=== PATIENT | male | born 1985 | race African-American/Black ===

== ENCOUNTER 2019-01-23 22:07 | Emergency (ER) | payer OTHER ==
[~2019-01-23] VITALS: Ht 188 cm; Wt 79.4 kg
[~2019-01-23 22:07] MED LIST: CYCLOBENZAPRINE10 MG PO; IBUPROFEN 800800 MG PO; LIBRIUM PO; NOHOMEMEDICATIONS; ULTRAM 50MG TAB50 MG PO
[2019-01-23] MEDS ORDERED: PRINIVIL20 MG PO (22:13)
[2019-01-23 22:40] LABS: URINE BILIRUBIN NEGATIVE (Negative); URINE BLOOD TRACE (Negative); URINE CLARITY CLEAR; URINE COLOR YELLOW; URINE GLUCOSE-RANDOM* NEGATIVE (Negative); URINE KETONES 2+ (Negative); URINE LEUKOCYTES-REFLEX NEGATIVE (Negative); URINE NITRITE-REFLEX NEGATIVE (Negative); URINE PROTEIN (DIPSTICK) 2+ (Negative); URINE SPECIFIC GRAVITY >= 1.030 (1.005-1.035)
[2019-01-23 22:47] LABS: BACTERIA-REFLEX None Seen /HPF (None Seen); CASTS None Seen /LPF (None Seen); CRYSTALS None Seen /LPF (None Seen); MUCUS 4-6 Moderate strn/LPF (None Seen); SQUAMOUS 0-3 Few /LPF (0-3); URINE RBC 0-2 Rare /HPF (0-2); URINE WBC-REFLEX 0-5 Rare /HPF (0-5)
[2019-01-23 22:48] LABS: AMP/METHAMP Negative (Negative); BARBITURATES Negative (Negative); BENZODIAZEPINES Negative (Negative); COCAINE Negative (Negative); METHADONE Negative (Negative); OPIATES Negative (Negative); PCP Negative (Negative)
[2019-01-23 22:52] LABS: BASOPHILS 1.5 % (0.0-2.0); EOSINOPHILS 0.8 % (0.0-3.0); HEMATOCRIT 40.9 % (42.0-52.0); LYMPHOCYTES 31.7 % (24.0-44.0); MCH 34.2 pg (26.0-34.0); MCHC 34.3 g/dL (28.0-37.0); MCV 99.7 fL (80.0-100.0); MONOCYTES 7.1 % (1.0-8.0); PLATELET COUNT 125 thou/uL (150-400); POLYS 58.9 % (36.0-66.0); RDW 13.6 % (10.5-14.5); WBC 6.8 thou/uL (4.0-11.0)
[2019-01-23 23:03] LABS: ANION GAP 15 mmol/L (7-16); BUN 10 mg/dL (7-18); CALCIUM 8.7 mg/dL (8.5-10.1); CHLORIDE 98 mmol/L (98-107); CO2 29 mmol/L (21-32); CREATININE 0.7 mg/dL (0.7-1.3); GLUCOSE 83 mg/dL (74-106); POTASSIUM 3.3 mmol/L (3.5-5.1); SODIUM 142 mmol/L (136-145)
[2019-01-23 23:11] LABS: ALBUMIN 4.4 g/dL (3.4-5.0); MAGNESIUM 1.6 mg/dL (1.8-2.4); SALICYLATE < 2.8 mg/dL (2.8-20.0); SGOT 219 U/L (15-37); SGPT 145 U/L (30-65); TOTAL BILIRUBIN 0.5 mg/dL (<0.1-1.0); TOTAL PROTEIN 7.4 g/dL (6.4-8.2); TROPONIN-I <0.06 ng/mL (<0.06)
[2019-01-24 02:45] VITALS: BP 135/102
--- NOTE | 2019-01-24 08:03 | EKG ---
[place] [address] [facility] [place] [address] ELECTROCARDIOGRAM REPORT Name: AMEPAYAL Vera Room #: [facility]#: [id number] ������������������ Admission: 01/23/19 ������������������ Attend Phys: Discharge: 01/24/19 ������������������ Date of : 85 Report #: [id number] ����������������������������������������������������������������� [id number] THIS REPORT FOR: //name// [facility] ED Test Date: 2019-01-23 Test Time: 22:49:45 Pat Name: PAYAL MCCLOUD Department: Room: Gender: M Enrollment Services Dean: : 1985 Requested By: Stuart Hendrix Order Number: [id number] MD: Clifford Bolton Measurements Intervals [place] Rate: 100 P: 68 IA: 135 QRS: -41 QRSD: 104 T: 29 QT: 364 QTc: 470 Interpretive Statements Sinus tachycardia Left axis deviation ST elev, probable normal early repol pattern Compared to ECG 08/07/2015 18:52:43 no significant change was found Electronically Signed On 01-24-2019 8:03:24 CDT by Clifford Bolton [email or web address] ��������������������������������������������� <ELECTRONICALLY SIGNED> ���������������������������������������� By: Clifford Bolton MD, [facility] ��������������������������������������������� 01/24/19802 2249 Clifford Bolton MD, FAC /EPI
== END 2019-01-24 02:45 | disposition home or self-care (01) ==
LOC: ER 22:07
PROVIDERS: Emergency Medicine
DX: F10.129 Alcohol abuse with intoxication, unspecified (principal); E83.42 Hypomagnesemia; E87.6 Hypokalemia; R79.89 Other specified abnormal findings of blood chemistry; Y90.8 Blood alcohol level of 240 mg/100 ml or more; J45.909 Unspecified asthma, uncomplicated; F17.210 Nicotine dependence, cigarettes, uncomplicated

== ENCOUNTER 2020-04-08 10:46 | Inpatient (IN) | payer OTHER ==
[~2020-04-08] VITALS: Ht 188 cm; Wt 79.4 kg
[2020-04-08 10:46] VITALS: BP 149/84
[~2020-04-08 10:46] MED LIST changes: +PRINIVIL20 MG PO
[2020-04-08 11:08] LABS: BASOPHILS 0.6 % (0.0-2.0); HEMATOCRIT 46.8 % (42.0-52.0); HEMOGLOBIN 16.1 gm/dL (14.0-18.0); LYMPHOCYTES 8.5 % (24.0-44.0); MCH 35.5 pg (26.0-34.0); MCHC 34.3 g/dL (28.0-37.0); MCV 103.4 fL (80.0-100.0); MONOCYTES 7.7 % (1.0-8.0); PLATELET COUNT 144 thou/uL (150-400); POLYS 83.2 % (36.0-66.0); RBC 4.52 mil/uL (4.50-6.00); RDW 13.2 % (10.5-14.5); WBC 10.9 thou/uL (4.0-11.0)
[2020-04-08 11:31] LABS: CALCIUM 9.3 mg/dL (8.5-10.1); CREATININE 1.9 mg/dL (0.7-1.3); POTASSIUM 4.4 mmol/L (3.5-5.1)
[2020-04-08 11:35] LABS: ALBUMIN 5.3 g/dL (3.4-5.0); TOTAL BILIRUBIN 1.4 mg/dL (0.2-1.0); TOTAL PROTEIN 9.6 g/dL (6.4-8.2)
--- NOTE | 2020-04-08 13:14 | NUR ---
Pt reports he fell on a rock on and landed on the L side of his ribs. Reports continued pain since then
[2020-04-08 14:06] LABS: URINE BILIRUBIN 2+ (Negative); URINE BLOOD TRACE (Negative); URINE CLARITY CLEAR; URINE COLOR YELLOW; URINE GLUCOSE-RANDOM* NEGATIVE (Negative); URINE KETONES 3+ (Negative); URINE LEUKOCYTES-REFLEX NEGATIVE (Negative); URINE NITRITE-REFLEX NEGATIVE (Negative); URINE PROTEIN (DIPSTICK) 2+ (Negative); URINE SPECIFIC GRAVITY >= 1.030 (1.005-1.035); URINE UROBILINOGEN 0.2 E.U./dl (0.2-1.0)
[2020-04-08 14:15] LABS: CASTS None Seen /LPF (None Seen); CRYSTALS None Seen /LPF (None Seen); URINE RBC None Seen /HPF (0-2)
[2020-04-08 14:16] LABS: BACTERIA-REFLEX 1-9 Few /HPF (None Seen); SQUAMOUS 0-3 Few /LPF (0-3); URINE WBC-REFLEX None Seen /HPF (0-5)
--- NOTE | 2020-04-08 14:17 | NUR ---
Patient's mother updated on patient status
[2020-04-08 14:18] LABS: AMP/METHAMP Negative (Negative); BARBITURATES Negative (Negative); BENZODIAZEPINES Negative (Negative); COCAINE Negative (Negative); METHADONE Negative (Negative); OPIATES POSITIVE (Negative); PCP Negative (Negative)
[2020-04-08 14:25] VITALS: BP 141/85
[2020-04-08 14:53] VITALS: BP 131/89
[2020-04-08 17:25] VITALS: BP 150/93
--- NOTE | 2020-04-08 17:58 | NUR ---
PATIENT ADMITTED FROM ER WITH PANCREATITIS AND MULTIPLE RIB FRACTURES, ARRIVED ON THE UNIT AT 1530. PATIENT ALERT AND ORIENTED X 4, UP WITH SBA. PATIENT STATES HE FELL TODAY, FALL PRECAUTIONS IN PLACE, PATIENT INSTRUCTED TO CALL FOR ASSISTANCE. PATIENT C/O PAIN WITH LEFT FLANK AREA, SWOLLEN AND BRUISED, PATIENT GIVEN TRAMADOL 50MG 1 TABLET. PATIENT ON CLEAR LIQUID DIET, NPO AFTER MIDNIGHT FOR EGD. PATIENT HAS LEFT WRIST IV WITH D 5 1/2 NS AT 100CC/HR. ADMISSION COMPLETED, WILL GIVE REPORT TO JACQUELINE Hauser/DARRYL.
[2020-04-08 19:05] VITALS: BP 135/95
[2020-04-09 03:20] VITALS: BP 129/93
--- NOTE | 2020-04-09 04:40 | NUR ---
PATIENT IS PROGRESSING SLOWLY IN HIS CARE PLAN. VITAL SIGNS STABLE WITH PATIENT HAVING NO COMPLAINTS OF NAUSEA. PATIENT DID COMPLAIN OF PAIN FREQUENTLY IN LEFT FLANK AREA WHICH WAS TREATED APPROPRIATELY THROUGH MEDICATIONS AND NON PHARMACOLOGICAL INTERVENTIONS. FULLY ORIENTED, PATIENT IS ABLE TO CALL APPROPRIATELY AND PARTICIPATE IN CARE. NPO FROM MIDNIGHT ON IN ANTICIPATION OF TODAYS PROCEDURE. UP WITH ASSISTANCE INCIDENT FREE, PATIENT IS CONSIDERED A HIGH FALL RISK. CONTINUE PLAN OF CARE.
[2020-04-09 07:07] LABS: ALBUMIN 3.8 g/dL (3.4-5.0); CALCIUM 8.8 mg/dL (8.5-10.1); CREATININE 1.1 mg/dL (0.7-1.3); POTASSIUM 3.8 mmol/L (3.5-5.1); TOTAL BILIRUBIN 1.2 mg/dL (0.2-1.0); TOTAL PROTEIN 7.4 g/dL (6.4-8.2)
[2020-04-09 07:48] LABS: FOLIC ACID 14.9 ng/mL (8.6-58.9)
--- NOTE | 2020-04-09 14:49 | NUR ---
CM ATTEMPTED TO CONTACT PT IN HIS ROOM BUT NO ANSWER. PT IS PATIENT PAY SO CM FAXED REFERRAL TO [facility] AND WILL CONTINUE TO ATTEMPT TO REACH PT. PT HAD EGD TODAY. CM WILL CONTINUE TO FOLLOW TO ASSIST NEEDED.
[2020-04-09 16:04] VITALS: BP 137/95
--- NOTE | 2020-04-09 17:34 | NUR ---
PT A&OX4. AMBULATES WITH STANDBY ASSIST. IV INTACT IN R FA INFUSING FLUIDS W/O COMPS. EGD COMPLETE. PT TOLERATING FULL LIQUID DIET. CALL LIGHT W/I REACH. WILL CONT POC.
[2020-04-09 19:25] VITALS: BP 122/87
--- NOTE | 2020-04-10 02:59 | NUR ---
ASSUMED CARE OF PT AT APPROXIMATELY 1900. PT IS ALERT AND ORIENTED X4. COMPLAINS OF LEFT FLANK PAIN. PRN MEDICATION GIVEN DIRECTED. COMPLAINS OF DIFFICULTY SWALLOWING WITH A CONSTANT IRRITATION IN HIS THROAT. FOOD SERVICE UTILITY WORKER CONTACTED AND GIVEN ORDERS FOR A ONE TIME GI COCTAIL. PT STATED IT RELIEVED SOME OF THE DISCOMFORT BUT NOT FULLY. AT THIS TIME, PT IS RESTING IN BED WATCHING TV. CALL LIGHT WITHIN REACH. WILL CONTINUE TO MONITOR.
[2020-04-10 04:00] VITALS: BP 115/66
[2020-04-10 06:24] LABS: HEMATOCRIT 38.9 % (42.0-52.0); MCH 35.2 pg (26.0-34.0); MCHC 34.5 g/dL (28.0-37.0); MCV 102.2 fL (80.0-100.0); RBC 3.8 mil/uL (4.50-6.00); RDW 12.5 % (10.5-14.5); WBC 7.8 thou/uL (4.0-11.0)
[2020-04-10 06:26] LABS: HEMOGLOBIN 13.4 gm/dL (14.0-18.0)
[2020-04-10 06:39] LABS: CALCIUM 8.6 mg/dL (8.5-10.1); CREATININE 0.7 mg/dL (0.7-1.3); MAGNESIUM 1.7 mg/dL (1.8-2.4); POTASSIUM 3.1 mmol/L (3.5-5.1)
[2020-04-10 07:13] LABS: HEPATITIS B SURFACE AG Negative (Negative); HEPATITIS C VIRUS AB 0.3 (0.0-0.9)
[2020-04-10 07:17] VITALS: BP 128/86
--- NOTE | 2020-04-10 08:56 | NUR ---
ASSESSMENT: CM REVIEWED CHART AND SPOKE WITH PATIENT. PT IS ALERT AND ORIENTED X4. PT HAD EGD WITH BIOPSY YESTERDAY. PT REPORTS HE LIVES AT HOME WITH FAMILY. PT STATES HE IS FULLY INDEPENDENT WITH ADLS AND AMBULATION. PT IS LISTED PATIENT PAY. PT CONFIRMS HE HAS NO INSURANCE AND IS NOT CURRENTLY WORKING. PT DOES NOT HAVE A PCP. CM PROVIDED PATIENT WITH A [employer] PACKET AND INFORMATION FOR [employer]. REFERRAL WAS ALSO SENT TO [facility]. PT REPORTS HE SHOULD HAVE NO NEEDS AT DISCHARGE.
--- NOTE | 2020-04-10 10:44 | P ---
[facility] [place] [address] PROCEDURE REPORT Name: PAYAL MCCLOUD Jody Room #: 433-I ADM IN .R.#: [id number] Admission: 04/08/20 Attend Phys: Magdaleno Franz MD Discharge: Date of : 85 Report #: [id number] THIS REPORT FOR: cc: [facility] - No family physician/PCP FAM - No family physician/PCP Amando Whitaker MD ~ CC: [facility] physician/PCP Magdaleno Franz BRIEF HISTORY: The patient is a 34-year-old male, who has evidence of either pancreatitis or pancreatic injury as well as abdominal pain, nausea, vomiting and dysphagia for solid foods. PREOPERATIVE DIAGNOSES: Abdominal pain and dysphagia. POSTOPERATIVE DIAGNOSES: 1. Cemuldhm-ly-nkbyvo distal esophagitis. 2. Gastritis. 3. Dysphagia. MEDICATIONS: Deep sedation with propofol per anesthesia. SPECIMEN: Biopsies of gastritis. ESTIMATED BLOOD LOSS: 3 mL. PROCEDURE: EGD with biopsy, Be dilation. FINDINGS: Prior to propofol sedation, procedure of upper endoscopy discussed with the patient as well potential risks and its complications. He indicates he understands and desires that we proceed. DESCRIPTION OF PROCEDURE: With the patient in left lateral decubitus position, the Olympus video endoscope was inserted in the cervical esophagus under direct vision without difficulty. Examination of this organ through its entire style length revealed normal esophageal mucosa in the proximal esophagus. Distally, there was a moderate erosive esophagitis. It was a diffuse esophagitis circumferentially involving the mucosa. I suspect this is result of vomiting rather than related to peptic reflux esophagitis. He has had dysphagia. I did not see definite stricture or ring. There was some mucosal edema and there may be some slight luminal narrowing, which was circumferential diffuse. The scope passed easily. A hiatus hernia was not seen. The scope was advanced in the stomach, was examined on end view as well as retroflexed views. There was erythema in the antrum in a linear configuration. There were a few erosions in the antrum, but no ulcers were seen. Upon examination of the proximal stomach including end views as well as retroflexed views revealed patchy changes in the fundus of the stomach with patchy erythema, which is likely result of trauma [facility] [address] [place] [address] PROCEDURE REPORT Name: PAYAL MCCLOUD Room #: 433-I ADM IN .R.#: [id number] Admission: 04/08/20 Attend Phys: Magdaleno Franz MD Discharge: Date of : 85 Report #: [id number] from vomiting. No ulcers were seen. No mass or lesions were seen. Pylorus was unremarkable. Duodenal bulb was unremarkable. Postoperatively, sweep was unremarkable. At that point, the scope was slowly withdrawn and careful circumferential views confirmed the above findings. The patient tolerated the procedure well. DISPOSITION: The patient has gastritis. No ulcers. I suspect his pain is primarily coming from his musculoskeletal trauma related to his fall and from his pancreatitis as a result of alcohol or recent trauma. However, he has been having problems with dysphagia, nausea and vomiting. There was no evidence of outlet obstruction. The esophagitis is likely related to regurgitation; although, he may have some chronic reflux on a long-term basis. He was dilated with 52-Niuean Be dilator. We treated with a PPI at this point in time. We will advance diet as tolerated. Follow up on biopsies. <ELECTRONICALLY SIGNED> By: Amando Whitaker MD 04/10/20 1044 [id number] 1831 Amando Whitaker MD /nt
--- NOTE | 2020-04-10 16:07 | PATH ---
[facility] [address] [place] [address] PATHOLOGY RPT PROCEDURE Name: AMARI MCCLOUD Jody Room #: 433-I ADM IN M.R.#: [id number] Admission: 04/08/20 Date of : 85 Discharge: Report #: [id number] Path Case #: [id number] [facility] Accession Number: [id number] . 01 Material submitted: . stomach - BX OF GASTRITIS . 01 Clinical history: . Pre-op diagnosis: Nausea, vomiting, dysphagia, abdominal pain Post-op diagnosis: Gastritis R/O H. pylori . 02 Diagnosis: Gastric mucosa, gastritis rule out H. pylori, endoscopic biopsy: - Mild chronic gastritis with features of reactive gastropathy. - Negative for intestinal metaplasia or atrophy. - Negative for Helicobacter pylori (properly-controlled immunohistochemical stain performed). . (IUV:mml; 04/10/2020) QLM 04/10/2020 1303 Local . 02 Electronically signed: . Clemencia Sy MD, Pathologist NPI- [id number] . 01 Gross description: . The specimen is received in formalin, labeled "Amari Mccloud, biopsy of gastritis, R/O H. pylori". Received are three segments of pale garrett soft tissue ranging in size from 0.4 to 0.5 cm in maximum dimensions. The specimen is submitted entirely in cassette A1. (CAA; 04/09/2020) QAC/QA 04/09/2020 1823 Local . 02 Pathologist provided ICD-10: K29.50 . 02 CPT . 182666, Z11128 Specimen Comment: A courtesy copy of this report has been sent to [phone] Specimen Comment: [phone] Specimen Comment: Report sent to / DR SHETH Performed at: [address], [place] [id number] MD Obi Henderson MD Phone: [phone] [address] [address] PATHOLOGY RPT PROCEDURE Name: AMEAMARI Vera Room #: 433-I [facility] IN ..#: [id number] Admission: 04/08/20 Date of : 85 Discharge: Report #: [id number] Path Case #: [id number] Performed at: [address] [id number] MD Clemencia Sy MD Phone: [phone]
--- NOTE | 2020-04-10 17:39 | NUR ---
PT A&OX4. IV INTACT IN R FA. AMBULATES SELF IN ROOM. PT HAD TROUBLE SWALLOWING PILLS THIS AM STATED " IT FEELS THAT IT IS STUCK IN MY THROAT" PT DID NOT WANT TO ATTEMPT TO EAT BREAKFAST AT THAT TIME. DOCTOR NOTIFIED AND SWITCHED K+ TO POWDER MIX. WILL CONT POC.
[2020-04-10 18:08] VITALS: BP 131/82
[2020-04-10 19:45] VITALS: BP 131/89
[2020-04-11 03:00] VITALS: BP 130/102
--- NOTE | 2020-04-11 04:09 | NUR ---
ASSESSMENT COMPLETED. PT IS UP AD VERONIQUE IN ROOM. BREATHING OKAY ON ROOM AIR, LEFT RIB CAGE AREA IS TENDER AND ALITTLE SWOLLEN. HE IS GETTING MORPHINE AND TRAMADOL FOR PAIN. DENIES NAUSEA OR VOMITING.VSS. AFEBRILE.WILL CONTINUE WITH POC TILL EOS.
[2020-04-11 05:52] LABS: HEMATOCRIT 37.3 % (42.0-52.0); HEMOGLOBIN 12.7 gm/dL (14.0-18.0); MCH 34.9 pg (26.0-34.0); MCHC 34.1 g/dL (28.0-37.0); MCV 102.4 fL (80.0-100.0); RBC 3.65 mil/uL (4.50-6.00); RDW 12.5 % (10.5-14.5); WBC 6.7 thou/uL (4.0-11.0)
[2020-04-11 06:06] LABS: CALCIUM 8.8 mg/dL (8.5-10.1); CREATININE 0.7 mg/dL (0.7-1.3); MAGNESIUM 1.9 mg/dL (1.8-2.4); POTASSIUM 3.1 mmol/L (3.5-5.1)
[2020-04-11 07:55] VITALS: BP 140/96
[2020-04-11 09:39] LABS: PHOSPHORUS 2.5 mg/dL (2.5-4.9)
--- NOTE | 2020-04-11 12:42 | NUR ---
ON-GOING ASSESSMENT: ADVANCING DIET. PT WAS GIVEN RESOURCES DUE TO NOT HAVING INSURANCE. PT WILL HAVE NO NEEDS FROM CM AT THE TIME OF DISCHARGE.
[2020-04-11 18:08] VITALS: BP 130/95
[2020-04-11 19:20] VITALS: BP 122/72
--- NOTE | 2020-04-11 19:30 | NUR ---
VSS-AFEBRILE. LUMGS CLEAR-ROOM AIR. C/O LEFT FLANK PAIN RELATED TO RIB FRACTURES, RELIEF NOTED WITH IV AND PO PAIN MEDICATIONS. ETOH WITHDRAWL SYMPTOMS PRESENT, TREMORS, SWEATING, ANXIETYM AND VISUAL HALLUCINATIONS. ATIVAN ADMINISTERED, FULL RELIEF NOTED. OOB TO SHOWER INDEPENDENTLY. CALLS APPROPRIATELY FOR ANY NEEDED ASSISTANCE.
[2020-04-12 02:30] VITALS: BP 136/91
--- NOTE | 2020-04-12 02:39 | NUR ---
ASSUMED CARE OF PT AT 1900. PT IS A/O X4. UP SBA. C/O PAIN AND ANXIETY. PRN PAIN AND ANXIETY MEDICATION GIVEN ORDERED. WILL CONTINUE TO MONITOR.
[2020-04-12 05:42] LABS: HEMATOCRIT 38.9 % (42.0-52.0); HEMOGLOBIN 13.2 gm/dL (14.0-18.0); MCH 35.3 pg (26.0-34.0); MCHC 33.9 g/dL (28.0-37.0); MCV 104.3 fL (80.0-100.0); RBC 3.73 mil/uL (4.50-6.00); RDW 12.4 % (10.5-14.5); WBC 7.6 thou/uL (4.0-11.0)
[2020-04-12 05:55] LABS: CALCIUM 9.4 mg/dL (8.5-10.1); CREATININE 0.9 mg/dL (0.7-1.3); MAGNESIUM 1.7 mg/dL (1.8-2.4); POTASSIUM 4.7 mmol/L (3.5-5.1)
[2020-04-12 07:16] VITALS: BP 136/86
[2020-04-12 15:47] VITALS: BP 148/95
[2020-04-12 17:08] LABS: AMP/METHAMP Negative (Negative); BARBITURATES Negative (Negative); BENZODIAZEPINES Negative (Negative); COCAINE Negative (Negative); METHADONE Negative (Negative); OPIATES POSITIVE (Negative); PCP Negative (Negative)
--- NOTE | 2020-04-12 18:39 | NUR ---
VSS-AFEBRILE. LUNGS CLEAR-ROOM AIR. REMAINS ANXIOUS, CWAA SCORE RUNS 8-9. PAIN PARTIALLY CONTROLLED WITH IV PAIN MEDICATION AND PO ATIVAN. CALLS APPROPRIATELY FOR ANY NEEDED ASSISTANCE.
[2020-04-12 19:24] VITALS: BP 134/87
[2020-04-13 04:37] VITALS: BP 135/95
--- NOTE | 2020-04-13 04:51 | NUR ---
PT AMBULATING INDEPENDENTLY AND IS TOLERATING FAIR. MORPHINE PROVIDING PAIN RELIEF. LORAZEPAM PROVIDING ANXIETY RELIEF. RESTING COMFORTABLY. NO NEEDS VOICED. FREQUENT OBSERVATION.
[2020-04-13 05:43] LABS: HEMATOCRIT 42.5 % (42.0-52.0); HEMOGLOBIN 14.4 gm/dL (14.0-18.0); MCH 35.1 pg (26.0-34.0); MCV 103.5 fL (80.0-100.0); RBC 4.1 mil/uL (4.50-6.00); RDW 12.3 % (10.5-14.5); WBC 8.1 thou/uL (4.0-11.0)
[2020-04-13 06:04] LABS: CREATININE 0.8 mg/dL (0.7-1.3); MAGNESIUM 1.6 mg/dL (1.8-2.4); PHOSPHORUS 4.3 mg/dL (2.5-4.9)
[2020-04-13 07:13] VITALS: BP 144/96
[2020-04-13] MEDS ORDERED: PANTOPRAZOLE SO40 M1 PO (11:33)
[2020-04-13] MEDS ORDERED: LIDOPATCH1 EACH TRANSDERM (11:34)
[2020-04-13] MEDS ORDERED: NORCO 5-325 TA1 EAC1 PO (11:35)
[2020-04-13 12:38] VITALS: BP 144/96
--- NOTE | 2020-04-13 15:28 | NUR ---
VSS-AFEBRILE. LUNGS CLEAR-ROOM AIR. DISCUSSED ALL DISCHAGE INFORMATION, VERBALIZED UNDERSTANDING. LEFT UNIT WITH ALL PAPERWORK, AND BELONGINGS IN WHEELCHAIR. PATIENT WAS PICKE UP BY MOTHER IN PRIVATE VEHICLE.
[2020-04-13 15:29] VITALS: BP 144/96
== END 2020-04-13 14:30 | disposition home or self-care (01) | DRG 391 ==
LOC: ER 10:46 → EROBS 13:32 → 4S 13:32
PROVIDERS: Emergency Medicine; Internal Medicine; Nurse Practitioner; Physician Assistant; Specialist; ADMIT Hospitalist; ATTEND Hospitalist
PROC: 0D758ZZ Dilation of Esophagus, Via Natural or Artificial Opening Endoscopic (ICD-10-PCS; principal; 2020-04-09)
PROC: 0DB68ZX Excision of Stomach, Via Natural or Artificial Opening Endoscopic, Diagnostic (ICD-10-PCS; 2020-04-09)
DX: K29.70 Gastritis, unspecified, without bleeding (principal); K85.90 Acute pancreatitis without necrosis or infection, unspecified; S22.42XA Multiple fractures of ribs, left side, initial encounter for closed fracture; N17.9 Acute kidney failure, unspecified; F10.239 Alcohol dependence with withdrawal, unspecified; K20.9 Esophagitis, unspecified; J45.909 Unspecified asthma, uncomplicated; I10 Essential (primary) hypertension; R74.0 Nonspecific elevation of levels of transaminase and lactic acid dehydrogenase [LDH]; R13.10 Dysphagia, unspecified; K21.9 Gastro-esophageal reflux disease without esophagitis; F17.210 Nicotine dependence, cigarettes, uncomplicated; F19.10 Other psychoactive substance abuse, uncomplicated; K76.0 Fatty (change of) liver, not elsewhere classified; R06.6 Hiccough; E87.6 Hypokalemia; E83.42 Hypomagnesemia; D69.6 Thrombocytopenia, unspecified; F10.20 Alcohol dependence, uncomplicated; K20.8 Other esophagitis; Z20.828 Contact with and (suspected) exposure to other viral communicable diseases; Z71.51 Drug abuse counseling and surveillance of drug abuser; Z79.899 Other long term (current) drug therapy; X58.XXXA Exposure to other specified factors, initial encounter; Y93.89 Activity, other specified; Y92.89 Other specified places as the place of occurrence of the external cause; Y99.8 Other external cause status
CPT/HCPCS: 10102; 62110; 62900; 70005

== ENCOUNTER 2020-04-14 22:31 | Emergency (ER) | payer OTHER ==
[~2020-04-14] VITALS: Ht 188 cm; Wt 86.2 kg
[~2020-04-14 22:31] MED LIST changes: +LIDOPATCH1 EACH TRANSDERM; +NORCO 5-325 TA1 EAC1 PO; +PANTOPRAZOLE SO40 M1 PO
[2020-04-15 07:00] VITALS: BP 120/72
== END 2020-04-14 22:45 | disposition home or self-care (01) ==
LOC: ER 22:31
DX: F10.920 Alcohol use, unspecified with intoxication, uncomplicated (principal); S22.42XD Multiple fractures of ribs, left side, subsequent encounter for fracture with routine healing; R07.89 Other chest pain; R06.02 Shortness of breath; J45.909 Unspecified asthma, uncomplicated; I10 Essential (primary) hypertension; F17.210 Nicotine dependence, cigarettes, uncomplicated; Z79.899 Other long term (current) drug therapy; Z98.890 Other specified postprocedural states; X58.XXXD Exposure to other specified factors, subsequent encounter

== ENCOUNTER 2021-08-08 03:46 | Inpatient (IN) | payer OTHER ==
[~2021-08-08] VITALS: Ht 188 cm; Wt 74.6 kg
--- NOTE | ~2021-08-08 | EMS ---
[place] [id number] [place] Patient Care Report Name: PAYAL MCCLOUD Room #: 364-P [facility] IN .R.#: [id number] Admission: 08/08/21 Attend Phys: Luci Newberry MD Discharge: 08/12/21 Date of : 85 Report #: [id number] THIS REPORT FOR: //name// Report Transmitted: 08/14/2021 13:36 EMS Care Summary [place], [place]/[facility] Incident [id number] @ 08/08/2021 03:19 [address] [place] [address] Patient PAYAL MCCLOUD Male, 35 Years 1985 Patient Address [address] [place] [address] Patient History Pancreatitis, Patient Allergies No known allergies, Patient Medications None Reported, Chief Complaint ABD PAIN Disposition Transported No Lights/Pierre Dispatch Reason Hemorrhage/Laceration Transported To [facility] Narrative PT FOUND SITTING ON FLOOR IN LIVING ROOM OF HIS HOME. P41 ON SCENE. PT STATES THAT HE IS HAVING WORSENING ABD PAIN. PT STATES THAT HE HAS PANCREATITIS AND THIS FEELS LIKE HIS USUAL PANCREATITIS PAIN. PT HAS NO VISIBLE TRAUMA. PT HAS NO COMPLAINTS OF SOB, CP OR TRAUMA. NO CHANGES NOTED ENROUTE. [address] [address] EMS Patient Care Report Name: PAYAL MCCLOUD Room #: 364-P [facility] IN [facility]#: [id number] Admission: 08/08/21 Attend Phys: Luci Newberry MD Discharge: 08/12/21 Date of : 85 Report #: [id number] Initial Vitals @03:31P: 77,R: 16,BP: 168/103,Pain: 6/10,GCS: 15,SpO2: 100,Revised Trauma: 12, Assessments @03:28MENTAL:No Abnormalities,SKIN:No Abnormalities,HEENT:Head/Face: No Abnormalities,LUNG SOUNDS:Left Upper: Tenderness,Right Upper: Tenderness,General: No Abnormalities,ABDOMEN:Left Upper: Tenderness,Right Upper: Tenderness,General: No Abnormalities,PELVIS//GI:No Abnormalities,EXTREMITIES:PULSE:NEURO:No Abnormalities, Impression Abdominal Pain Procedures @03:28ALS AssessmentResponse: UnchangedSucceeded@03:31StretcherResponse: Unchanged Timeline 03:18,Call Received 03:18,Dispatch Notified 03:19,Dispatched 03:22,En Route 03:27,On Scene 03:28,At Patient 03:28,ALS Assessment,Response: UnchangedSucceeded, 03:31,BP: 168/103 M,PULSE: 77,RR: 16 R,SPO2: 100 Ox,ETCO2: ,BG: ,PAIN: 6,GCS: 15, 03:31,Stretcher,Response: Unchanged 03:32,Depart Scene 03:43,At Destination 03:48,Call Closed Disclaimer v1.1 Copyright 2020 [employer] This EMS Care Summary contains data elements from the applicable legal record (which may be displayed differently). It is designed to provide pertinent information for the following purposes: continuity of care, clinical quality, and state data reporting. The complete legal record is available to ED staff and administrators of the receiving hospital in [employer] Patient Tracker. All data is provided "as is."
[2021-08-08 03:47] VITALS: BP 142/106
[2021-08-08] MEDS ORDERED: GLYBURIDE 5 MG T5 M1 PO (04:00)
[2021-08-08 04:46] LABS: ABSOLUTE NEUTROPHILS 7.3 thou/uL (1.4-8.2); BASOPHILS 0.3 % (0.0-2.0); HEMATOCRIT 40.8 % (42.0-52.0); HEMOGLOBIN 13.9 gm/dL (14.0-18.0); LYMPHOCYTES 9.7 % (24.0-44.0); MCH 35.2 pg (26.0-34.0); MCV 103.7 fL (80.0-100.0); MONOCYTES 8.4 % (1.0-8.0); PLATELET COUNT 78 thou/uL (150-400); POLYS 81.6 % (36.0-66.0); RBC 3.93 mil/uL (4.50-6.00); RDW 13.7 % (10.5-14.5)
[2021-08-08 04:49] LABS: CALCIUM 9.4 mg/dL (8.5-10.1); CREATININE 1.7 mg/dL (0.7-1.3)
[2021-08-08 04:53] LABS: POTASSIUM 3.8 mmol/L (3.5-5.1)
[2021-08-08 04:54] LABS: ALBUMIN 4.8 g/dL (3.4-5.0); DIRECT BILIRUBIN 0.3 mg/dL (<0.1-0.2); TOTAL BILIRUBIN 1.8 mg/dL (0.2-1.0); TOTAL PROTEIN 9.7 g/dL (6.4-8.2)
[2021-08-08 06:29] LABS: URINE BILIRUBIN 3+ (Negative); URINE BLOOD 1+ (Negative); URINE CLARITY CLEAR; URINE COLOR YELLOW; URINE GLUCOSE-RANDOM* NEGATIVE (Negative); URINE KETONES 3+ (Negative); URINE LEUKOCYTES-REFLEX NEGATIVE (Negative); URINE NITRITE-REFLEX NEGATIVE (Negative); URINE PROTEIN (DIPSTICK) 2+ (Negative); URINE SPECIFIC GRAVITY >= 1.030 (1.005-1.035)
[2021-08-08 06:36] LABS: ICTOTEST (BILI CONFIRMATORY) Positive (Negative)
[2021-08-08 07:45] LABS: CASTS None Seen /LPF (None Seen); MUCUS 0-3 Light strn/LPF (None Seen); SQUAMOUS 0-3 Few /LPF (0-3); URINE RBC 1-2 Rare /HPF (NONE SEEN); URINE WBC-REFLEX 0-5 Rare /HPF (0-5)
[2021-08-08 07:46] LABS: BACTERIA-REFLEX None Seen /HPF (None Seen); CRYSTALS None Seen /LPF (None Seen)
--- NOTE | 2021-08-08 10:20 | NUR ---
Pt vomited 300ml dark green emesis. Anti-emetic offered. Pt refused, stated he had no nausea and episode was induced by reflux.
[2021-08-08 13:58] VITALS: BP 158/105
[2021-08-08 14:01] VITALS: BP 162/115
[2021-08-08 14:40] VITALS: BP 182/108
[2021-08-08 16:29] LABS: HEMATOCRIT 40.6 % (42.0-52.0); HEMOGLOBIN 13.7 gm/dL (14.0-18.0)
[2021-08-08 16:42] LABS: CALCIUM 8.1 mg/dL (8.5-10.1); CREATININE 1.2 mg/dL (0.7-1.3); MAGNESIUM 1.1 mg/dL (1.8-2.4); PHOSPHORUS 1.7 mg/dL (2.6-4.7)
--- NOTE | 2021-08-08 18:25 | NUR ---
ADMISSION NOTE: PT ADMITTED ON UNIT AT 1530. PT ALERT AND ORIENTED X 4. PT ANXIOUS DUE TO PAIN IN ABDOMEN AND BILATERAL LEGS. MORPHINE GIVEN WITH PARTIAL PAIN RELIEF. PT ON RA. PT ON TELE RUNNING SR. CONSENTS SIGNED AND PUT IN CHART. PT USES URINAL AND WILL USE BSC NEEDED. ORIENTED PT TO ROOM WITH CALL LIGHT AND TABLE WITHIN REACH. PATIENTS FAMILY AT BEDSIDE EARLIER IN ED AND AWARE OF PT CONDITION. PT NPO CURRENTLY. PT DENIES NEEDS AT THIS TIME. WILL CONTINUE TO MONITOR. SKIN INTACT. ASSESSMENT AND ADMISSION COMPLETED. PT FATHER CALLED AND UPDATED ABOUT CARE.
[2021-08-08 19:13] VITALS: BP 151/90
--- NOTE | 2021-08-08 22:43 | NUR ---
NOTED ORDER TO TRANSFER PT TO ICU. REPORT GIVEN TO ASHU ANDREWS AT THIS TIME. PT TO TRANSFER WITH DOT COMPLIANCE MANAGER AND ON THE BED TO ROOM 236 ONCE THAT ROOM HAS BEEN CLEANED.
[2021-08-08 23:04] LABS: CALCIUM 7.7 mg/dL (8.5-10.1); CREATININE 1.2 mg/dL (0.7-1.3); POTASSIUM 3.1 mmol/L (3.5-5.1)
[2021-08-08 23:07] LABS: ALBUMIN 3.5 g/dL (3.4-5.0); MAGNESIUM 1.6 mg/dL (1.8-2.4); PHOSPHORUS 2.2 mg/dL (2.6-4.7)
[2021-08-08 23:45] VITALS: BP 164/100
[2021-08-09] VITALS (26 sets, daily range): BP systolic 136–164; BP diastolic 91–111
[2021-08-09 03:26] LABS: ABSOLUTE NEUTROPHILS 6.5 thou/uL (1.4-8.2); ALBUMIN 3.6 g/dL (3.4-5.0); BASOPHILS 0.2 % (0.0-2.0); CALCIUM 7.6 mg/dL (8.5-10.1); DIRECT BILIRUBIN 0.2 mg/dL (<0.1-0.2); EOSINOPHILS 0.4 % (0.0-3.0); HEMATOCRIT 39.4 % (42.0-52.0); HEMOGLOBIN 13.4 gm/dL (14.0-18.0); LYMPHOCYTES 13.6 % (24.0-44.0); MAGNESIUM 1.6 mg/dL (1.8-2.4); MCH 35.3 pg (26.0-34.0); MCV 103.9 fL (80.0-100.0); MONOCYTES 7.3 % (1.0-8.0); PHOSPHORUS 1.3 mg/dL (2.5-4.9); PLATELET COUNT 53 thou/uL (150-400); POLYS 78.5 % (36.0-66.0); POTASSIUM 3.2 mmol/L (3.5-5.1); RBC 3.79 mil/uL (4.50-6.00); RDW 13.5 % (10.5-14.5); TOTAL BILIRUBIN 1.1 mg/dL (0.2-1.0); TOTAL PROTEIN 7.5 g/dL (6.4-8.2); WBC 8.3 thou/uL (4.0-11.0)
--- NOTE | 2021-08-09 08:14 | NUR ---
PT IS ON DKA PROTOCOL AT THIS TIME BUT LABS WERE NOT ABLE TO BE DRAWN DESPITE MULTIPLE STICKS. HOSPITALIST IS AWARE THAT HE NEEDS A PICC TO DRAW LABS FOR THE DKA PROTOCOL.
[2021-08-09 11:14] LABS: ALBUMIN 3.2 g/dL (3.4-5.0); CREATININE 0.8 mg/dL (0.7-1.3); MAGNESIUM 1.6 mg/dL (1.8-2.4); PHOSPHORUS 1.2 mg/dL (2.6-4.7); TOTAL BILIRUBIN 1.2 mg/dL (0.2-1.0); TOTAL PROTEIN 6.2 g/dL (6.4-8.2)
[2021-08-09 11:23] LABS: CALCIUM 7.2 mg/dL (8.5-10.1)
--- NOTE | 2021-08-09 12:15 | NUR ---
PT IS NOT ON A INSULIN DRIP THE HOSPITALIST IS MADE AWARE. HE IS READY TO TRANSFER PER THE HOSPITALIST.
--- NOTE | 2021-08-09 12:29 | NUR ---
PICC PLACEMENT- CONSENT WAS OBTAINED AFTER THE PROCEDURE WELL BENIFITS AND RISKS FOR INFECTION AND DVT WERE DISCUSSED. THE LEFT BRACHIAL VEIN VS CATHETER RATIO WAS 35%. A #5F TRIPLE LUMEN POWER PICC WAS PLACED PER HOSPITAL POLICY AFTER A BEDSIDE TIMEOUT WAS COMPLETED. THE LINE WAS TRIMMED TO 42CM AND ADVANCED WITHOUT DIFFICULTY. THE LINE WAS CONFIRMED WITH PEAKED PWAVES AT 5CM EXTERNAL. THE LINE WAS SECURED AND RELEASED FOR USE
--- NOTE | 2021-08-09 16:19 | NUR ---
PT DKA PROTOCOL IS DC'D AT 1200 PER HOSPITALIST.
[2021-08-09 16:53] LABS: ABSOLUTE NEUTROPHILS 5.8 thou/uL (1.4-8.2); BASOPHILS 0.1 % (0.0-2.0); EOSINOPHILS 0.4 % (0.0-3.0); HEMATOCRIT 34.1 % (42.0-52.0); HEMOGLOBIN 11.7 gm/dL (14.0-18.0); LYMPHOCYTES 10.5 % (24.0-44.0); MCH 34.9 pg (26.0-34.0); MCHC 34.2 g/dL (28.0-37.0); MCV 102.3 fL (80.0-100.0); MONOCYTES 5.5 % (1.0-8.0); PLATELET COUNT 44 thou/uL (150-400); POLYS 83.5 % (36.0-66.0); RBC 3.34 mil/uL (4.50-6.00); RDW 13.4 % (10.5-14.5)
--- NOTE | 2021-08-09 21:35 | NUR ---
REPORT GIVEN TO OFFGOING NURSE AT 2130. PT TRANSFERRED TO UNIT WITH BELONGINGS.
--- NOTE | 2021-08-09 21:59 | NUR ---
This RN transferred patient from 236 to 364 at 2145.
[2021-08-10] VITALS (8 sets, daily range): BP systolic 135–150; BP diastolic 95–108
[2021-08-10 00:59] LABS: CALCIUM 7.4 mg/dL (8.5-10.1); CREATININE 0.7 mg/dL (0.7-1.3); MAGNESIUM 2.7 mg/dL (1.8-2.4); PHOSPHORUS 1.7 mg/dL (2.6-4.7); POTASSIUM 3.6 mmol/L (3.5-5.1)
[2021-08-10 02:00] LABS: URINE BILIRUBIN NEGATIVE (Negative); URINE BLOOD NEGATIVE (Negative); URINE CLARITY CLEAR; URINE COLOR YELLOW; URINE GLUCOSE-RANDOM* NEGATIVE (Negative); URINE KETONES NEGATIVE (Negative); URINE LEUKOCYTES NEGATIVE (Negative); URINE NITRITE NEGATIVE (Negative); URINE PROTEIN (DIPSTICK) NEGATIVE (Negative)
[2021-08-10 02:01] LABS: AMP/METHAMP Negative (Negative); BARBITURATES Negative (Negative); BENZODIAZEPINES Negative (Negative); COCAINE Negative (Negative); METHADONE Negative (Negative); OPIATES POSITIVE (Negative); PCP Negative (Negative)
[2021-08-10 06:42] LABS: ABSOLUTE NEUTROPHILS 4.3 thou/uL (1.4-8.2); BASOPHILS 0.3 % (0.0-2.0); EOSINOPHILS 0.7 % (0.0-3.0); HEMATOCRIT 31.5 % (42.0-52.0); HEMOGLOBIN 10.9 gm/dL (14.0-18.0); LYMPHOCYTES 14.5 % (24.0-44.0); MCH 35.8 pg (26.0-34.0); MCHC 34.7 g/dL (28.0-37.0); MCV 103.3 fL (80.0-100.0); MONOCYTES 5.2 % (1.0-8.0); POLYS 79.3 % (36.0-66.0); RBC 3.05 mil/uL (4.50-6.00); RDW 13.5 % (10.5-14.5); WBC 5.4 thou/uL (4.0-11.0)
--- NOTE | 2021-08-10 07:00 | NUR ---
Patient transfered out of ICU, arrived per wheelchair. Patient making slow progress towards outcome goals. Vital signs and rhythm stable. Still with a lot of abdominal pain, medicated with Morphine with some relief. IVfluids infusing. Gait steady, standby assist to bathroom due to IVfluids. CIWA 1.
[2021-08-10 07:28] LABS: ALBUMIN 3.1 g/dL (3.4-5.0); CREATININE 0.6 mg/dL (0.7-1.3); TOTAL BILIRUBIN 1.1 mg/dL (0.2-1.0); TOTAL PROTEIN 6.4 g/dL (6.4-8.2)
[2021-08-10 07:30] LABS: POTASSIUM 2.6 mmol/L (3.5-5.1)
[2021-08-10 09:45] LABS: PLATELET COUNT 30 thou/uL (150-400)
--- NOTE | 2021-08-10 12:40 | NUR ---
Case opened to follow for dc planning. Chart reviewed and case discussed with the care team. Pt known to from admission here last year. [facility] and ethol resources provided. Nursing reports pt is up ad zak and being treated for acute pancreatitis and ethol w/d. Call rec'd from pt's mother Mary requesting resouces and programs for inpt ethol tx. Resources reviewed. She is well versed and glad [facility] Source will screen him for [place] Medicaid application as the pt has not been able to work for a couple of years d/t his addiction and medical issues. He has utilized the [facility] walkin clinic and has been to detox for 6 days. The pt's dc instructions have been updated with resources. Pt's mother instructed that the pt will need to call for himself as most programs will not confirm a bed without talking with the pt about his desire to go into treatment. The pt would likely not be able to go directly into treatment for the acute hospital as there is often a wait list for inpt tx beds especially without insurance. She will call [facility] for bed availability and have pt call at dc.
[2021-08-10 16:15] LABS: INR 1.08; PROTIME 11.7 Seconds (10.5-12.1)
--- NOTE | 2021-08-11 00:28 | NUR ---
PT ALERT AND ORIENTED X4. VSS AFEBRILE. UNLABORED ON RA. C/O ABD PAIN X2 SO FAR. MEDICATED WITH MORPHINE 1 MG. PT IS PRESENTLY SLEEPING NO S/S DISTRESS. BED DOWN. CALL LIGHT INREACH. PT ON LOW FIBER . JELLO GIVEN AT HS. NO N/V.
[2021-08-11 04:15] VITALS: BP 157/102
[2021-08-11 05:26] VITALS: BP 154/104
[2021-08-11 05:36] LABS: CALCIUM 8.6 mg/dL (8.5-10.1); CREATININE 0.5 mg/dL (0.7-1.3); MAGNESIUM 1.9 mg/dL (1.8-2.4); PHOSPHORUS 2.4 mg/dL (2.6-4.7); POTASSIUM 3.3 mmol/L (3.5-5.1)
--- NOTE | 2021-08-11 06:43 | NUR ---
PT PROGRESSING TOWARDS D/C GOALS VSS AFEBRILE. ABDOMINAL PAIN CONTROLLED WITH MORPHINE WITH ADEQUATE RELIEF OBTAINED. PT ANXIOUS FOR HIS DIET TO BE INCREASED.
[2021-08-11 08:01] VITALS: BP 155/109
--- NOTE | 2021-08-11 11:54 | NUR ---
CARE TEAM INDICATED THAT PT WOULD LIEKLY BE MEDICALLY STABLE TO DC HOME THIS DAY. CM IDNICATED THAT PT WOULD LIKELY NEEDS ASSISTANCE IN FILLING MEDICATIONS UPON DC. CM CALLED TO SPEAK WITH PT ABOUT MEDS UPON DC AND POSSIBLE DC HOME THIS DAY. PT INDICATED HE WOULD NEED MEDS FILLED UPON DC. HE STATED THAT HE FELT THAT HE WAS STILL WITHDRAWING AND HAVING SOME HALLUCINATIONS. CM INFORMED HOSPITALIST. HE INDICATED THAT WOULD KEEP PT UNTIL TOMORROW. CM FOLLOWING REGARDING PERSCRIPTIONS UPON DC.
[2021-08-11 15:16] VITALS: BP 145/103
--- NOTE | 2021-08-11 18:16 | NUR ---
ASSUMED PATIENT CARE AT 0700. A/O X4. CIW X0. PAIN MED GIVEN NEED. NO N/V. PROGRESSING TOWART POC GOALS.
[2021-08-11 19:11] VITALS: BP 158/104
[2021-08-12 04:17] VITALS: BP 166/110
[2021-08-12 07:07] VITALS: BP 157/119
--- NOTE | 2021-08-12 08:18 | NUR ---
PT MAKING SLOW PROGRESS TOWARDS GOALS. DOSED WITH NORCO PER ORDERS FOR HEADACHE AND ABDOMINAL PAIN. PT VOICES MILD RELIEF WITH DOSES. ALSO GIVEN ATIVAN PER ORDERS FOR AGITATION WITH PT VOICING MILD RELIEF.
[2021-08-12] MEDS ORDERED: PRINIVIL20 MG PO (11:53)
[2021-08-12] MEDS ORDERED: PRENATAL PO (11:53)
[2021-08-12 13:14] VITALS: BP 159/107
--- NOTE | 2021-08-12 13:25 | NUR ---
Pt is medically stable to dc as per MD, DC orders given. Prescriptions sent down to our pharmacy (vouched). Outside resources for PCP, alcohol treatment etc indicated in dc instructions, pt informed. Pts family will pick him up as per the pt. No further needs required from CM.
--- NOTE | 2021-08-12 15:36 | NUR ---
Today this pt has been d/c to home with family. he has had his picc line removed and he has had a shower. he had some stated pain in which he was medicated.
== END 2021-08-12 15:53 | disposition home or self-care (01) | DRG 432 ==
LOC: ER 03:46 → EROBS 07:53 → 3W 14:26 → ICU 22:47 → 3W 08-09 21:52
PROVIDERS: Nurse Practitioner; Nurse Practitioner Family; Student in an Organized Health Care Education/Training Program; ADMIT Internal Medicine; ATTEND Internal Medicine
DX: K70.10 Alcoholic hepatitis without ascites (principal); K85.20 Alcohol induced acute pancreatitis without necrosis or infection; N17.9 Acute kidney failure, unspecified; Z20.822 Contact with and (suspected) exposure to COVID-19; E87.6 Hypokalemia; F19.10 Other psychoactive substance abuse, uncomplicated; E11.9 Type 2 diabetes mellitus without complications; E11.42 Type 2 diabetes mellitus with diabetic polyneuropathy; Z79.4 Long term (current) use of insulin
CPT/HCPCS: 10203; 10879; 27000

== ENCOUNTER 2021-12-17 19:56 | Inpatient (IN) | payer OTHER ==
[~2021-12-17] VITALS: Ht 188 cm; Wt 72.6 kg
[~2021-12-17 19:56] MED LIST changes: +GLYBURIDE 5 MG T5 M1 PO; +PRENATAL PO
[2021-12-17 19:57] VITALS: BP 174/121
[2021-12-17 21:04] LABS: ABSOLUTE NEUTROPHILS 8.6 thou/uL (1.4-8.2); BASOPHILS 0.4 % (0.0-2.0); HEMATOCRIT 47.9 % (42.0-52.0); LYMPHOCYTES 3.7 % (24.0-44.0); MCH 35.4 pg (26.0-34.0); MCHC 33.4 g/dL (28.0-37.0); MCV 106.1 fL (80.0-100.0); MONOCYTES 9.4 % (1.0-8.0); PLATELET COUNT 77 thou/uL (150-400); POLYS 86.5 % (36.0-66.0); RBC 4.51 mil/uL (4.50-6.00); RDW 13.9 % (10.5-14.5)
[2021-12-17 21:14] LABS: ALBUMIN 4.7 g/dL (3.4-5.0); CALCIUM 8.8 mg/dL (8.5-10.1); CREATININE 0.9 mg/dL (0.7-1.3); POTASSIUM 4.4 mmol/L (3.5-5.1); TOTAL BILIRUBIN 1.7 mg/dL (0.2-1.0); TOTAL PROTEIN 8.9 g/dL (6.4-8.2)
[2021-12-17 22:04] VITALS: BP 187/109
[2021-12-17 22:25] VITALS: BP 182/120
[2021-12-18 07:04] VITALS: BP 188/114
[2021-12-18 07:26] LABS: CALCIUM 8.8 mg/dL (8.5-10.1); CREATININE 1.2 mg/dL (0.7-1.3); POTASSIUM 4.2 mmol/L (3.5-5.1)
[2021-12-18 09:14] VITALS: BP 110/119
[2021-12-18 12:50] LABS: INR 1.16; PROTIME 12.6 Seconds (10.5-12.1)
--- NOTE | 2021-12-18 16:28 | NUR ---
ADMISSION TO UNIT AT 0700. PT A0X4. VSS. NO RESPIRATORY DISTRESS. CO OF 10/[address] PA[address] HARRISON NOTIFIED - IV METOPROLOL ORDERED AND IV MORPHINE/ZOFRAN GIVEN. IV FLUIDS INFUSING. PT IS ABLE TO AMBULATE STAND BY ASSISTNANCE. CONTINENT. FAMILY CURRENTLY AT BEDSIDE. GIVEN PAIN MEDICATIONS AROUND THE CLOCK PRN. WILL CONTINUE TO MONITOR PT.
[2021-12-18 20:07] VITALS: BP 152/99
--- NOTE | 2021-12-19 00:56 | NUR ---
PT A&O x4, UAL WITHIN ROOM. PRN PAIN MEDS PROVIDED. PT TOLERATING PO INTAKE WELL. EDUCATION PROVIDED ON PAIN MANAGEMENT, ETOH USE, AND DISEASE PROCESS- PT VERALIZED UNDERSTANDING. PT CARE TRANFERED TO RUTHIE ANDREWS @ 7390
[2021-12-19 05:49] LABS: ALBUMIN 3.4 g/dL (3.4-5.0); POTASSIUM 3.3 mmol/L (3.5-5.1); TOTAL BILIRUBIN 1.3 mg/dL (0.2-1.0); TOTAL PROTEIN 7.5 g/dL (6.4-8.2)
--- NOTE | 2021-12-19 06:23 | NUR ---
RECEIVED CARE OF THIS PATIENT AT 0030. PATIENT ALERT AND ORIEMTED X4. UP AD VERONIQUE.IV IN R HAND WITH FLUIDS INFUSING. C/P PAIN, MED GIVEN. SLEPT OFF AND ON DURING THIS SHIFT
[2021-12-19 08:42] VITALS: BP 140/96
[2021-12-19 09:00] VITALS: BP 140/96
[2021-12-19 09:37] LABS: ABSOLUTE NEUTROPHILS 4.3 thou/uL (1.4-8.2); BASOPHILS 0.4 % (0.0-2.0); EOSINOPHILS 1.8 % (0.0-3.0); HEMATOCRIT 36.3 % (42.0-52.0); LYMPHOCYTES 16.8 % (24.0-44.0); MCH 35.4 pg (26.0-34.0); MCHC 34.5 g/dL (28.0-37.0); MCV 102.6 fL (80.0-100.0); MONOCYTES 10.8 % (1.0-8.0); PLATELET COUNT 55 thou/uL (150-400); POLYS 70.2 % (36.0-66.0); RBC 3.54 mil/uL (4.50-6.00); RDW 13.2 % (10.5-14.5); WBC 6.1 thou/uL (4.0-11.0)
[2021-12-19 09:43] LABS: HEMOGLOBIN 12.5 gm/dL (14.0-18.0)
[2021-12-19 16:39] VITALS: BP 141/99
[2021-12-19 21:21] VITALS: BP 138/91
[2021-12-20 05:55] LABS: ABSOLUTE NEUTROPHILS 3.9 thou/uL (1.4-8.2); BASOPHILS 0.5 % (0.0-2.0); EOSINOPHILS 3.8 % (0.0-3.0); HEMATOCRIT 38.9 % (42.0-52.0); HEMOGLOBIN 13.5 gm/dL (14.0-18.0); LYMPHOCYTES 19.7 % (24.0-44.0); MCH 35.3 pg (26.0-34.0); MCHC 34.7 g/dL (28.0-37.0); MCV 101.9 fL (80.0-100.0); MONOCYTES 6.2 % (1.0-8.0); PLATELET COUNT 74 thou/uL (150-400); POLYS 69.8 % (36.0-66.0); RBC 3.82 mil/uL (4.50-6.00); RDW 13.5 % (10.5-14.5); WBC 5.6 thou/uL (4.0-11.0)
[2021-12-20 06:13] LABS: ALBUMIN 3.3 g/dL (3.4-5.0); CREATININE 0.8 mg/dL (0.7-1.3); MAGNESIUM 1.1 mg/dL (1.8-2.4); PHOSPHORUS 0.7 mg/dL (2.6-4.7); TOTAL BILIRUBIN 1.8 mg/dL (0.2-1.0); TOTAL PROTEIN 7.3 g/dL (6.4-8.2)
[2021-12-20 06:17] LABS: POTASSIUM 2.8 mmol/L (3.5-5.1)
--- NOTE | 2021-12-20 08:30 | NUR ---
PT AMBULATING TO BATHROOM INDEPENDENTLY AND IS TOLERATING WELL. MORPHINE PROVIDINH PAIN RELIEF. ZOFRAN NAUSEA RELIEF. RESTING COMFORTABLY. NO NEEDS VOICED. CALL LIGHT WITHIN REACH. FREQUENT OBSERVATION.
[2021-12-20 09:00] VITALS: BP 138/80
[2021-12-20 16:45] VITALS: BP 151/100
[2021-12-20 22:18] VITALS: BP 133/87
[2021-12-21 07:40] VITALS: BP 138/97
--- NOTE | 2021-12-21 08:08 | NUR ---
PT AMBULATING IN ROOM INDEPENDENTLY AND IS TOLERATING WELL. MORPHINE PROVIDING PAIN RELIEF. ZOFRAN NAUSEA RELIEF. RESTING COMFORTABLY. NO NEEDS VOICED. CALL LIGHT WITHIN REACH. FREQUENT OBSERVATION.
[2021-12-21 15:41] VITALS: BP 152/99
[2021-12-21 20:51] VITALS: BP 144/100
--- NOTE | 2021-12-22 05:05 | NUR ---
ASSUMED PT CARE THIS PM. PT IS ALERT AND ORIENTED X4.PT C/O PAIN WHICH WAS MANAGED PRN MED. PT DID NOT C/O N/V BUT C/O HALLUCINATING. NO OTHER CONCERNS WERE VERBALIZED. WILL CONTINUE TO MONITOR.
[2021-12-22 07:59] VITALS: BP 150/101
[2021-12-22] MEDS ORDERED: HYDROCODON-ACE1 EAC7 PO (10:33)
[2021-12-22 15:38] VITALS: BP 150/101
[2021-12-22 20:35] VITALS: BP 145/94
--- NOTE | 2021-12-23 05:00 | NUR ---
ASSUMED PT CARE THIS PM. PT IS ALERT AND ORIENTED X4.PT EXPRESSED DISPLEASURE ABOUT NEW DIET ORDER AND C/O OF HUNGER. PT C/O PAIN WHICH WAS MANAGED BY PRN MEDS. PT IS ON RA. WILL CONTINUE TO MONITOR.
[2021-12-23 09:26] VITALS: BP 145/94
--- NOTE | 2021-12-23 18:16 | NUR ---
discharge information discussed, all questions answered, encouraged to call if any questions arise. IV removed without difficulty, catheter intact, pressure dressing applied. pt left with father in stable condition.
== END 2021-12-23 18:15 | disposition home or self-care (01) | DRG 432 ==
LOC: ER 19:56 → EROBS 21:57 → 4S 21:57
PROVIDERS: Emergency Medicine; Internal Medicine; Nurse Practitioner; Nurse Practitioner Family; ADMIT Internal Medicine; ATTEND Internal Medicine
DX: K70.10 Alcoholic hepatitis without ascites (principal); K85.20 Alcohol induced acute pancreatitis without necrosis or infection; E46 Unspecified protein-calorie malnutrition; I10 Essential (primary) hypertension; Z20.822 Contact with and (suspected) exposure to COVID-19; J45.909 Unspecified asthma, uncomplicated; F12.90 Cannabis use, unspecified, uncomplicated; E11.42 Type 2 diabetes mellitus with diabetic polyneuropathy; F17.210 Nicotine dependence, cigarettes, uncomplicated; D69.6 Thrombocytopenia, unspecified; R74.01 Elevation of levels of liver transaminase levels; F10.20 Alcohol dependence, uncomplicated; D53.9 Nutritional anemia, unspecified; K76.0 Fatty (change of) liver, not elsewhere classified; Z80.0 Family history of malignant neoplasm of digestive organs; Z68.20 Body mass index [BMI] 20.0-20.9, adult
CPT/HCPCS: 10100; 10195